=== PATIENT | male | born 1975 | race Caucasian/White ===

== ENCOUNTER → 2016-05-23 | Outpatient (CLI) | payer BC ==
--- NOTE | 2016-05-23 18:30 | PN ---
This patient was diagnosed having severe obstructive sleep apnea with an AHI 40. He is coming in for a compliancy check. He is doing much better and much more alert and awake during the day while being on treatment. His CPAP therapy for more than 4 hours has achieved 75%. He is utilizing a nose mask. However, he is looking for alternatives and he has showed interested ( ) nasal pillow. His AHI is up from 40 down to 1 while being on CPAP therapy and his leak factor is only 18 L/ minimal. He is averaging around 6.5 hours of CPAP use every night. No other complaints otherwise. He is quite alert and awake during the day. BP is 152/80. Pulse 78, respirations 16, weight is 203, temperature 97.9, saturation 98%. GENERAL APPEARANCE: Obese, calm, comfortable. HEENT: Negative for JVD. There is no goiter, neck mass. LUNGS: Clear to auscultation. HEART: Sounds are regular rate and rhythm. Normal S1, S2. ABDOMEN: Soft, nontender. No organomegaly. EXTREMITIES: No edema. No cyanosis or clubbing. IMPRESSION: 1. Severe symptomatic obstructive sleep apnea; apnea-hypopnea index of 14 currently undergoing successful CPAP therapy. 2. Obesity with a baseline of 31.8. I noted that the patient has gained around 9 pounds over the holidays. 3. Hypersomnia, improved with CPAP therapy. 4. Adequate compliancy with CPAP treatment. PLAN: 1. Encourage weight loss. 2. Continue CPAP therapy at the same level of pressure. 3. Implement good sleep hygiene measures. 4. Switch this patient to an AirFit P10 nasal pillow large size and appropriate mask fitting was done today. 5. See me back in a year's time; earlier if needed.
== END | disposition home or self-care (01) ==

== ENCOUNTER 2024-07-05 15:14 | Emergency (ER) | payer BC ==
[2024-07-05 15:21] VITALS: RESP 20
--- NOTE | 2024-07-05 15:39 | XR ---
EXAMINATION TYPE: XR chest 2V DATE OF EXAM: 07/05/2024 3:31 PM COMPARISON: Chest radiographs from 07/05/2024 CLINICAL INDICATION: Male, 48 years old with history of cough fever; TECHNIQUE: XR chest 2V Frontal and lateral views of the chest. FINDINGS: Lungs/Pleura: There is no evidence of pleural effusion, focal consolidation, or pneumothorax. Pulmonary vascularity: Unremarkable. Heart/mediastinum: Cardiomediastinal silhouette is unremarkable. Musculoskeletal: No acute osseous pathology. IMPRESSION: No acute cardiopulmonary disease/process. [facility], , 07/05/2024 3:37 PM
--- NOTE | 2024-07-05 15:59 | ED ---
URI HPI - General Chief Complaint: Upper Respiratory Infection Stated Complaint: Dizziness Time Seen by Provider: 07/05/24 15:30 Source: patient, RN notes reviewed Mode of arrival: ambulatory Limitations: no limitations - History of Present Illness Initial Comments: This is a 48-year-old male presenting with sick symptoms x 4 days. Patient endorses fever, cough, congestion, body aches, vomiting/diarrhea with associated dizziness. Denies chest pain, dyspnea, abdominal pain, nausea, hematemesis, hematochezia/melena. Endorses last use of TheraFlu/DayQuil at 1100 today. MD Complaint: fever Onset/Timin -: days(s) Improves With: OTC cold medicine Treatments Prior to Arrival: "cold medicine" - Related Data Previous Rx's Medication Instructions Recorded Ibuprofen [Motrin] 800 mg PO Q8HR PRN #30 tab 07/05/24 Ondansetron [Zofran] 4 mg PO Q8HR PRN #15 tab 07/05/24 Allergies Allergy/AdvReac Type Severity Reaction Status Date / Time No Known Allergies Allergy Verified 07/05/24 15:21 Review of Systems ROS Statement: Those systems with pertinent positive or pertinent negative responses have been documented in the HPI. ROS Other: All systems not noted in ROS Statement are negative. Past Medical History Past Medical History: No Reported History Past Surgical History: No Surgical Hx Reported Smoking Status: Never smoker General Exam Limitations: no limitations General appearance: alert, in no apparent distress Head exam: Present: atraumatic, normocephalic, normal inspection Eye exam: Present: normal appearance, PERRL, EOMI. Absent: scleral icterus, conjunctival injection, periorbital swelling ENT exam: Present: normal exam, normal oropharynx, mucous membranes moist, TM's normal bilaterally Neck exam: Present: normal inspection. Absent: tenderness, meningismus, lymphadenopathy Respiratory exam: Present: normal lung sounds bilaterally. Absent: respiratory distress, wheezes, rales, rhonchi, stridor Cardiovascular Exam: Present: regular rate, normal rhythm, normal heart sounds. Absent: systolic murmur, diastolic murmur, rubs, gallop, clicks GI/Abdominal exam: Present: soft, normal bowel sounds. Absent: distended, ten derness, guarding, rebound, rigid Extremities exam: Present: normal inspection, full ROM, normal capillary refill. Absent: tenderness, pedal edema, joint swelling, calf tenderness Back exam: Present: normal inspection Neurological exam: Present: alert, oriented X3, CN II-XII intact Psychiatric exam: Present: normal affect, normal mood Skin exam: Present: warm, dry, intact, normal color. Absent: rash Course Vital Signs 07/05/24 07/05/24 15:18 17:43 Temperature 101.2 F H 98.9 F Pulse Rate 113 H 100 Respiratory 20 20 Rate Blood Pressure 130/86 128/84 O2 Sat by Pulse 95 97 Oximetry Medical Decision Making - Medical Decision Making Was pt. sent in by a medical professional or institution (, PA, COMPONENT INSPECTOR, urgent care, hospital, or custodial...) When possible be specific @ -No Did you speak to anyone other than the patient for history (EMS, parent, family, police, friend...)? What history was obtained from this source @ -No Did you review nursing and triage notes (agree or disagree)? Why? @ -I reviewed and agree with nursing and triage notes Were old charts reviewed (outside hosp., previous admission, EMS record, old EKG, old radiological studies, urgent care reports/EKG's, custodial records)? Report findings @ -No old charts were reviewed Differential Diagnosis (chest pain, altered mental status, abdominal pain women, abdominal pain men, vaginal bleeding, weakness, fever, dyspnea, syncope, headache, dizziness, GI bleed, back pain, seizure, CVA, palpatations, mental health, musculoskeletal)? @ -Differential Fever: Pneumonia, viral URI, endocarditis, myocarditis, pericarditis, otitis, sinusitis, peritonsillar Abscess, retropharyngeal Abscess, epiglottitis, peritonitis, appendicitis, Safia cystitis, diverticulitis, hepatitis, colitis, UTI, PID, TOA, pyelonephritis, prostatitis, epididymitis, meningitis, encephalitis, pulmonary embolism, CVA, thyroid storm, pancreatitis, adrenal crisis, cavernous sinus thrombosis, this is not meant to be an all-inclusive list. EKG interpreted by me (3pts min.). @ -Not done X-rays interpreted by me (1pt min.). @ -CXR shows no acute cardiopulmonary process CT interpreted by me (1pt min.). @ -None done U/S interpreted by me (1pt. min.). @ -None done What testing was considered but not performed or refused? (CT, X-rays, U/S, labs)? Why? @ -None What meds were considered but not given or refused? Why? @ -None Did you discuss the management of the patient with other professionals (professionals i.e. , PA, COMPONENT INSPECTOR, lab, RT, psych nurse, social organization professor, shopping inspector, teacher, corporate development officer, pillowcase sewer)? Give summary @ -No Was smoking cessation discussed for >3mins.? @ -No Was critical care preformed (if so, how long)? @ -No Were there social determinants of health that impacted care today? How? (Homelessness, low income, unemployed, alcoholism, drug addiction, transportation, low edu. Level, literacy, decrease access to med. care, residential, rehab)? @ -No Was there de-escalation of care discussed even if they declined (Discuss DNR or withdrawal of care, Hospice)? DNR status @ -No What co-morbidities impacted this encounter? (DM, HTN, Smoking, COPD, CAD, Cancer, CVA, ARF, Chemo, Hep., AIDS, mental health diagnosis, sleep apnea, morbid obesity)? @ -None Was patient admitted / discharged? Hospital course, mention meds given and route, prescriptions, significant lab abnormalities, going to OR and other pertinent info. @ -Cepheid test positive for influenza A. CXR shows no acute cardiopulmonary process. Patient provided p.o. Tylenol, Motrin as well as IV normal saline. Discharged with Zofran starter pack. Motrin 800 and Zofran sent to patient's pharmacy. Advised increased rest and oral fluid intake. Discussed patient with Dr. Mojica. Undiagnosed new problem with uncertain prognosis? @ -No Drug Therapy requiring intensive monitoring for toxicity (Heparin, Nitro, Insulin, Cardizem)? @ -No Were any procedures done? @ -No Diagnosis/symptom? @ -Influenza A Acute, or Chronic, or Acute on Chronic? @ -Acute Uncomplicated (without systemic symptoms) or Complicated (systemic symptoms)? @ -Complicated Side effects of treatment? @ -No Exacerbation, Progression, or Severe Exacerbation? @ -No Poses a threat to life or bodily function? How? (Chest pain, [place], [place], pneumonia, PE, COPD, DKA, ARF, appy, cholecystitis, CVA, Diverticulitis, Homicidal, Suici prieto, threat to staff... and all critical care pts) @ -No - Lab Data Lab Results 07/05/24 Range/Units 15:22 Influenza Type A (PCR) Detected A (Not Detectd) Influenza Type B (PCR) Not Detected (Not Detectd) RSV (PCR) Not Detected (Not Detectd) SARS-CoV-2 (PCR) Not Detected (Not Detectd) Disposition Clinical Impression: Influenza Disposition: HOME SELF-CARE Condition: Good Instructions (If sedation given, give patient instructions): Influenza (ED) Prescriptions: Ibuprofen [Motrin] 800 mg PO Q8HR PRN #30 tab PRN Reason: Pain Ondansetron [Zofran] 4 mg PO Q8HR PRN #15 tab PRN Reason: Nausea Is patient prescribed a controlled substance at d/c from ED?: No Referrals: Sonia Agrawal DO [Primary Care Provider] - 1-2 days Time of Disposition: 16:47
[2024-07-05 16:11] LABS: Influenza A Detected (Not Detectd); Influenza B Not Detected (Not Detectd); RSV Not Detected (Not Detectd)
[2024-07-05] MEDS: IBUPROFEN 800 MG TAB PO STA (16:58)
[2024-07-05] MEDS: ACETAMINOPHEN TAB 500 MG TAB PO STA (16:59)
[2024-07-05] MEDS: ONDANSETRON 4 MG ODT STARTER PACK 2 TAB BTL PO STA ×2 (17:00)
[2024-07-05] MEDS: SODIUM CHLORIDE 0.9% 1,000 ML IV STA (17:05)
[2024-07-05 17:44] VITALS: BP 128/84; PULSE 100; TEMP 98.9
== END 2024-07-05 18:05 | disposition home or self-care (01) ==
LOC: EC 15:14
DX: J10.1 Influenza due to other identified influenza virus with other respiratory manifestations (principal)
CPT/HCPCS: 87636; 71046; 99284; 96360; S0119

== ENCOUNTER 2024-07-07 16:24 | Inpatient (IN) | payer BC ==
--- NOTE | 2024-07-07 16:45 | ED ---
URI HPI - General Chief Complaint: Upper Respiratory Infection Stated Complaint: SOB, disoriented Time Seen by Provider: 07/07/24 16:43 Source: patient, RN notes reviewed, old records reviewed Mode of arrival: wheelchair Limitations: no limitations - History of Present Illness Initial Comments: This is a 48-year-old male he is presenting today for evaluation regards to shortness of breath decreased activity level for 2 days maybe some diarrhea no nausea vomiting positive diagnosis of the flu 3 days ago no treatment Motrin Tylenol at home for fever. Patient states his activity level has been severely diminished with increasing shortness of breath today patient is restless cannot remain comfortable secondary to feel like he cannot catch his breath. No current chest pain no current abdominal pain, persistent fever MD Complaint: fever, cough, nasal congestion -: days(s) (3) Severity: moderate Severity scale (1-10): 7 Quality: sharp Consistency: constant Improves With: nothing Worsens With: activity, deep breaths Context: sick contacts (Positive influenza) Associated Symptoms: fever, chills, myalgias, nasal congestion, cough, shortness of breath Treatments Prior to Arrival: Acetaminophen, Ibuprofen - Related Data Previous Rx's Medication Instructions Recorded Ibuprofen [Motrin] 800 mg PO Q8HR PRN #30 tab 07/05/24 Ondansetron [Zofran] 4 mg PO Q8HR PRN #15 tab 07/05/24 Allergies Allergy/AdvReac Type Severity Reaction Status Date / Time No Known Allergies Allergy Verified 07/05/24 15:21 Review of Systems ROS Statement: Those systems with pertinent positive or pertinent negative responses have been documented in the HPI. ROS Other: All systems not noted in ROS Statement are negative. Past Medical History Past Medical History: No Reported History Past Surgical History: No Surgical Hx Reported Smoking Status: Never smoker General Exam Limitations: no limitations General appearance: anxious Head exam: Present: atraumatic, normocephalic, normal inspection Eye exam: Present: normal appearance, PERRL, EOMI. Absent: scleral icterus, conjunctival injection, periorbital swelling ENT exam: Present: normal exam, mucous membranes moist Neck exam: Present: normal inspection. Absent: tenderness, meningismus, lymphadenopathy Respiratory exam: Present: normal lung sounds bilaterally. Absent: respiratory distress, wheezes, rales, rhonchi, stridor Cardiovascular Exam: Present: normal rhythm, tachycardia, normal heart sounds. Absent: systolic murmur, diastolic murmur, rubs, gallop, clicks GI/Abdominal exam: Present: soft, normal bowel sounds. Absent: distended, tenderness, guarding, rebound, rigid Extremities exam: Present: normal inspection, full ROM, normal capillary refill. Absent: tenderness, pedal edema, joint swelling, calf tenderness Back exam: Present: normal inspection Neurological exam: Present: alert, oriented X3, CN II-XII intact Psychiatric exam: Present: normal affect, normal mood Skin exam: Present: warm, dry, intact, normal color. Absent: rash Course Vital Signs 07/07/24 07/07/24 07/07/24 16:30 18:21 19:34 Temperature 102.9 F H 100.7 F H 99.2 F Pulse Rate 110 H 98 86 Respiratory 24 20 18 Rate Blood Pressure 126/88 123/68 121/7 O2 Sat by Pulse 95 94 L Oximetry 07/07/24 07/07/24 19:39 19:48 Temperature Pulse Rate 84 90 Respiratory Rate Blood Pressure O2 Sat by Pulse Oximetry - Reevaluation(s) Reevaluation #1: 07/07/24 17:43 Medical records reviewed Recent ER visit positive for influenza normal chest x-ray Reevaluation #2: 07/07/24 17:43 Patient symptoms unchanged after breathing treatment 07/07/24 22:25 Patient feels much improved heart rate is reviewed resolved to normal, resting comfortably, still short of breath with oxygen's in the high 80s Reevaluation #3: 07/07/24 22:25 Patient informed of results questions answered Reevaluation #4: Was pt. sent in by a medical professional or institution (, PA, CORE COMPOSER FEEDER, urgent care, hospital, or residential...) When possible be specific @ -no Did you speak to anyone other than the patient for history (EMS, parent, family, police, friend...)? What history was obtained from this source @ -no Did you review nursing and triage notes (agree or disagree)? Why? @ -agree Are old charts reviewed (outside hosp., previous admission, EMS record, old EKG, old radiological studies, urgent care reports/EKG's, residential records)? Report findings @ -yes Differential Diagnosis (chest pain, altered mental status, abdominal pain women, abdominal pain men, vaginal bleeding, weakness, fever, dyspnea, syncope, headache, dizziness, GI bleed, back pain, seizure, CVA, palpatations, mental health, musculoskeletal)? @ -prior EKG interpreted by me (3pts min.). @ -yes X-rays interpreted by me (1pt min.). @ -yes negative for acute disease CT interpreted by me (1pt min.). @ -no U/S interpreted by me (1pt. min.). @ -no What testing was considered but not performed or refused? (CT, X-rays, U/S, labs)? Why? @ -none What meds were considered but not given or refused? Why? @ -none Did you discuss the management of the patient with other professionals (professionals i.e. , PA, CORE COMPOSER FEEDER, lab, RT, psych nurse, community mental health social worker, hand potter, te acher, evp and chief operating officer, rehabilitation caseworker)? Give summary @ -no Was smoking cessation discussed for >3mins.? @ -no Was critical care preformed (if so, how long)? @ -no Were there social determinants of health that impacted care today? How? (Homelessness, low income, unemployed, alcoholism, drug addiction, transportation, low edu. Level, literacy, decrease access to med. care, group home, rehab)? @ -none Was there de-escalation of care discussed even if they declined (Discuss DNR or withdrawal of care, Hospice)? DNR status @ -no What co-morbidities impacted this encounter? (DM, HTN, Smoking, COPD, CAD, Cancer, CVA, ARF, Chemo, Hep., AIDS, mental health diagnosis, sleep apnea, morbid obesity)? @ -none Was patient admitted / discharged? Hospital course, mention meds given and route, prescriptions, significant lab abnormalities, going to OR and other pertinent info. @ - Undiagnosed new problem with uncertain prognosis? @ -no Drug Therapy requiring intensive monitoring for toxicity (Heparin, Nitro, Insulin, Cardizem)? @ -no Were any procedures done? @ -no Diagnosis/symptom? @ - Acute, or Chronic, or Acute on Chronic? @ -Acute Uncomplicated (without systemic symptoms) or Complicated (systemic symptoms)? @ -Complicated Side effects of treatment? @ -no Exacerbation, Progression, or Severe Exacerbation? @ -exacerbation Poses a threat to life or bodily function? How? (Chest pain, [place], [place], pneumonia, PE, COPD, DKA, ARF, appy, cholecystitis, CVA, Diverticulitis, Homicidal, Suicidal, threat to staff... and all critical care pts) @ -yes Reevaluation #5: Differential Dyspnea: Coronary syndrome, arrhythmia, tamponade, asthma, COPD, pulmonary embolism, pneumonia, pneumothorax, pulmonary effusion, anaphylaxis, diabetic ketoacidosis, flailed chest, pulmonary contusion, diaphragmatic rupture, anemia, neuromuscular, this is not meant to be an all-inclusive list. - Consultations Consultation #1: Spoke with [facility] who agrees to admit this patient Medical Decision Making - Medical Decision Making 48 male to the ER for evaluation patient presents today patient is here for evaluation regards to influenza with increasing shortness of breath. Patient is found to have multifocal pneumonia fever and hypoxia here in the ER, patient will be admitted for further evaluation and treatment - Lab Data Result diagrams: 07/07/24 16:44 07/07/24 17:39 Lab Results 07/07/24 07/07/24 07/07/24 Range/Units 16:44 17:04 17:39 WBC 3.6 L (3.8-10.6) k/uL RBC 5.33 (4.30-5.90) m/uL Hgb 17.0 (13.0-17.5) gm/dL Hct 49.5 (39.0-53.0) % MCV 92.9 (80.0-100.0) fL MCH 32.0 (25.0-35.0) pg MCHC 34.4 (31.0-37.0) g/dL RDW 12.5 (11.5-15.5) % Plt Count 138 L (150-450) k/uL MPV 8.0 Neutrophils % 82 % Lymphocytes % 13 % Monocytes % 3 % Eosinophils % 1 % Basophils % 0 % Neutrophils # 2.9 (1.3-7.7) k/uL Lymphocytes # 0.5 L (1.0-4.8) k/uL Monocytes # 0.1 (0-1.0) k/uL Eosinophils # 0.0 (0-0.7) k/uL Basophils # 0.0 (0-0.2) k/uL PT (10.0-12.5) sec INR (<1.2) APTT (22.0-30.0) sec D-Dimer (<0.60) mg/L FEU Sodium 131 L (137-145) mmol/L Potassium 3.6 (3.5-5.1) mmol/L Chloride 103 (98-107) mmol/L Carbon Dioxide 20 L (22-30) mmol/L Anion Gap 8 mmol/L BUN 17 (9-20) mg/dL Creatinine 0.94 (0.66-1.25) mg/dL Est GFR (CKD-EPI)AfAm >90 (>60 ml/min/1.73 sqM) Est GFR (CKD-EPI)NonAf >90 (>60 ml/min/1.73 sqM) Glucose 148 H (74-99) mg/dL POC Glucose (mg/dL) 149 H (70-110) mg/dL POC Glu Iv Therapy Nurse ID [facility] Plasma Lactic Acid Umesh (0.7-2.0) mmol/L Calcium 7.5 L (8.4-10.2) mg/dL Magnesium 1.8 (1.6-2.3) mg/dL Total Bilirubin 0.5 (0.2-1.3) mg/dL AST 37 (17-59) U/L ALT 35 (4-49) U/L Alkaline Phosphatase 28 L (38-126) U/L Troponin I (0.000-0.034) ng/mL NT-Pro-B Natriuret Pep <20 pg/mL Total Protein 5.9 L (6.3-8.2) g/dL Albumin 3.4 L (3.5-5.0) g/dL 07/07/24 07/07/24 07/07/24 Range/Units 17:39 17:39 18:11 WBC (3.8-10.6) k/uL RBC (4.30-5.90) m/uL Hgb (13.0-17.5) gm/dL Hct (39.0-53.0) % MCV (80.0-100.0) fL MCH (25.0-35.0) pg MCHC (31.0-37.0) g/dL RDW (11.5-15.5) % Plt Count (150-450) k/uL MPV Neutrophils % % Lymphocytes % % Monocytes % % Eosinophils % % Basophils % % Neutrophils # (1.3-7.7) k/uL Lymphocytes # (1.0-4.8) k/uL Monocytes # (0-1.0) k/uL Eosinophils # (0-0.7) k/uL Basophils # (0-0.2) k/uL PT 10.7 (10.0-12.5) sec INR 1.0 (<1.2) APTT 25.3 (22.0-30.0) sec D-Dimer 1.28 H (<0.60) mg/L FEU Sodium (137-145) mmol/L Potassium (3.5-5.1) mmol/L Chloride (98-107) mmol/L Carbon Dioxide (22-30) mmol/L Anion Gap mmol/L BUN (9-20) mg/dL Creatinine (0.66-1.25) mg/dL Est GFR (CKD-EPI)AfAm (>60 ml/min/1.73 sqM) Est GFR (CKD-EPI)NonAf (>60 ml/min/1.73 sqM) Glucose (74-99) mg/dL POC Glucose (mg/dL) (70-110) mg/dL POC Glu Iv Therapy Nurse ID Plasma Lactic Acid Umesh 1.4 (0.7-2.0) mmol/L Calcium (8.4-10.2) mg/dL Magnesium (1.6-2.3) mg/dL Total Bilirubin (0.2-1.3) mg/dL AST (17-59) U/L ALT (4-49) U/L Alkaline Phosphatase (38-126) U/L Troponin I <0.012 (0.000-0.034) ng/mL NT-Pro-B Natriuret Pep pg/mL Total Protein (6.3-8.2) g/dL Albumin (3.5-5.0) g/dL - EKG Data -: EKG Interpreted by Me (EKG is sinus tachycardia 110, PA 148 QRS 92 QTc 364) - Radiology Data Radiology results: report reviewed (Chest x-ray positive multifocal pneumonia CTA), image reviewed Critical Care Time Critical Care Time: Yes Total Critical Care Time: 31 Disposition Clinical Impression: Viral infection, Acute upper respiratory infection, Pneumonia, Multifocal pneumonia, Fever, Influenza A Disposition: ADMITTED IP TO THIS HOSP Condition: Serious Is patient prescribed a controlled substance at d/c from ED?: No Referrals: Sonia Agrawal DO [Primary Care Provider] - 1-2 days Time of Disposition: 22:20
[2024-07-07 17:06] LABS: Glucose,Whole Blood 149 mg/dL (70-110)
[2024-07-07] MEDS: IBUPROFEN 800 MG TAB PO STA (17:07)
[2024-07-07] MEDS: ACETAMINOPHEN TAB 500 MG TAB PO STA (17:08)
[2024-07-07] MEDS: DEXAMETHASONE SOD PHOSPHATE 10 MG/ML 1 ML VIAL IVP STA (17:11)
[2024-07-07] MEDS: KETOROLAC 15 MG/ML 1 ML VIAL IVP STA (17:11)
[2024-07-07] MEDS: SODIUM CHLORIDE 0.9% 1,000 ML IV STA ×3 (17:19→19:34)
[2024-07-07 17:29] LABS: Basophils % (A) 0 %; Eosinophils % (A) 1 %; HCT 49.5 % (39.0-53.0); Lymphocytes # (A) 0.5 k/uL (1.0-4.8); Lymphocytes % (A) 13 %; MCHC 34.4 g/dL (31.0-37.0); MCV 92.9 fL (80.0-100.0); Monocytes # (A) 0.1 k/uL (0-1.0); Monocytes % (A) 3 %; Neutrophils # (A) 2.9 k/uL (1.3-7.7); Neutrophils % (A) 82 %; Platelet Count 138 k/uL (150-450); RBC 5.33 m/uL (4.30-5.90); RDW 12.5 % (11.5-15.5); WBC 3.6 k/uL (3.8-10.6)
--- NOTE | 2024-07-07 17:53 | XR ---
EXAMINATION TYPE: XR chest 2V DATE OF EXAM: 07/07/2024 5:41 PM COMPARISON: Chest radiographs from 07/05/2024 TECHNIQUE: XR chest 2V Frontal and lateral views of the chest. CLINICAL INDICATION:Male, 48 years old with history of difficulty breathing; FINDINGS: Lungs/Pleura: No pleural effusion pneumothorax. Diffuse patchy airspace opacities. Heart/mediastinum: Cardiomediastinal silhouette is enlarged and stable. Musculoskeletal: No acute osseous pathology. IMPRESSION: Diffuse patchy airspace opacities. Correlate for pneumonia versus CHF exacerbation. [facility], , 07/07/2024 5:51 PM
[2024-07-07] MEDS: SODIUM CHLORIDE 0.9% 500 ML 500 ML IV STA (17:57)
[2024-07-07 18:20] LABS: ALT 35 U/L (4-49); AST 37 U/L (17-59); African American GFR (CKD) >90 (>60 ml/min/1.73 sqM); Albumin 3.4 g/dL (3.5-5.0); Alkaline Phosphatase 28 U/L (38-126); Anion Gap 8 mmol/L; Blood Urea Nitrogen 17 mg/dL (9-20); Calcium 7.5 mg/dL (8.4-10.2); Carbon Dioxide 20 mmol/L (22-30); Chloride 103 mmol/L (98-107); Glucose 148 mg/dL (74-99); Magnesium 1.8 mg/dL (1.6-2.3); Non-African American GFR(CKD) >90 (>60 ml/min/1.73 sqM); Potassium 3.6 mmol/L (3.5-5.1); Sodium 131 mmol/L (137-145); Total Bilirubin 0.5 mg/dL (0.2-1.3); Total Protein 5.9 g/dL (6.3-8.2)
[2024-07-07 18:28] LABS: NT-Pro-B-Type Natriuretic Pept <20 pg/mL
[2024-07-07 18:45] LABS: Partial Thromboplastin Time 25.3 sec (22.0-30.0); Prothrombin Time 10.7 sec (10.0-12.5)
[2024-07-07] MEDS: IPRATROPIUM-ALBUTEROL 3 ML NEB INHALATION STA ×2 (19:36→23:59)
[2024-07-07] MEDS ORDERED: PNEUMONIA PROTOCOL UTILIZED 1 EACH MISC PO PRN (22:20)
--- NOTE | 2024-07-07 22:45 | CT ---
EXAMINATION TYPE: CT angio chest CT DLP: 217.3 mGycm, Automated exposure control for dose reduction was used. DATE OF EXAM: 07/07/2024 9:08 PM COMPARISON: Chest radiograph from same day. . CLINICAL INDICATION:Male, 48 years old with history of pe; JEANNIE, positive dimer TECHNIQUE/CONTRAST: CTA scan of the thorax is performed with IV Contrast, patient injected with 100 mL of Isovue 370, MIP images are created and reviewed these are created on a separate workstation.. FINDINGS: Pulmonary Artery: There is no evidence for a central filling defect within the pulmonary vasculature to suggest acute pulmonary embolism. Limited evaluation of the segmental and subsegmental branches se condary to bolus timing. The pulmonary artery is of normal size. Lungs/Pleura: Multifocal bilateral patchy groundglass changes with central and peripheral distributio n most pronounced in the midlung zones. No pleural effusion or pneumothorax.. Airway: Large airways are patent. Heart: Heart is within normal limits for size. Vasculature: No evidence of aortic aneurysm. Mediastinum: Multistation mediastinal lymphadenopathy the largest seen in the right paratracheal spac e measuring 12 mm in short axis. There are additional prominent lymph nodes noted in the bilateral hi la. Musculoskeletal: No acute osseous abnormalities Soft Tissues/lymph nodes: Unremarkable. Lower neck: No significant findings. Upper Abdomen: Hepatic steatosis. Cholelithiasis. The spleen measures 13 cm which is at the upper [place] its of normal. IMPRESSION: 1. No evidence of central pulmonary embolism. Limited evaluation of the segmental and subsegmental br anches. Correlate with DVT study if clinical concern for venous thrombosis persists. 2. Multifocal bilateral groundglass pulmonary opacities concerning for acute infectious/inflammatory process. 3. Reactive mediastinal lymphadenopathy likely secondary to #2. 4. Hepatic steatosis. [facility], , 07/07/2024 10:43 PM
[2024-07-07] MEDS: AZITHROMYCIN 500 MG in SODIUM CHLORIDE 0.9% 250 ML IVPB STA (23:41)
[2024-07-08] MEDS: IPRATROPIUM-ALBUTEROL 3 ML NEB INHALATION STA
[2024-07-08] MEDS: ACETAMINOPHEN TAB 325 MG TAB PO PRN (05:17)
[2024-07-08] MEDS: IPRATROPIUM-ALBUTEROL 3 ML NEB INHALATION PRN (05:40)
--- NOTE | 2024-07-08 08:15 | XR ---
EXAMINATION TYPE: XR chest 1V portable DATE OF EXAM: 07/08/2024 5:21 AM COMPARISON: None. CLINICAL INDICATION: Male, 48 years old with history of pneumonia, TECHNIQUE: XR chest 1V portable view(s) obtained. FINDINGS: The heart size is normal. The pulmonary vasculature is prominent. Patchy infiltrate is present. Correlate for atypical pulmonary edema or atypical pneumonia. Continued follow-up is recommended IMPRESSION: 1. Patchy bilateral lung infiltrates. Correlate for atypical pulmonary edema and atypical pneumonia [facility], , 07/08/2024 8:12 AM
[2024-07-08] MEDS ORDERED: ACETAMINOPHEN TAB 500 MG TAB PO STA (09:51)
[2024-07-08] MEDS ORDERED: ONDANSETRON 4 MG/2 ML VIAL IVP PRN (09:55)
[2024-07-08] MEDS: OSELTAMIVIR 75 MG CAP PO SCH (10:32)
[2024-07-08 10:47] LABS: African American GFR (CKD) >90 (>60 ml/min/1.73 sqM); Anion Gap 11 mmol/L; Blood Urea Nitrogen 17 mg/dL (9-20); Calcium 8.2 mg/dL (8.4-10.2); Carbon Dioxide 24 mmol/L (22-30); Chloride 101 mmol/L (98-107); Glucose 117 mg/dL (74-99); Non-African American GFR(CKD) >90 (>60 ml/min/1.73 sqM); Potassium 3.9 mmol/L (3.5-5.1); Sodium 136 mmol/L (137-145)
[2024-07-08] MEDS: methylPREDNISolone SOD SUCCI 40 MG/ML 1 ML VIAL IV SCH (12:29)
[2024-07-08] MEDS: DOXYCYCLINE 50 MG CAP PO SCH (13:17)
--- NOTE | 2024-07-08 19:04 | P.HPIM ---
History of Present Illness H&P Date: 07/08/24 This is a pleasant 48-year-old male with medical history significant for sleep apnea never smoker denies any alcohol or illicit substance use. Patient comes in with worsening flulike symptoms. Patient was in the ER on July 05 with shortness of breath and cough diagnosed with influenza A he was sent home recommending to continue with alternating Tylenol Motrin and supportive care. Patient return to the ER with worsening shortness of breath fever chills and bronchospastic cough without sputum production. Patient had a chest x-ray which reveals diffuse patchy airspace opacities correlate for pneumonia versus CHF exacerbation. Elevated D-dimer CT angiography was completed which reveals no evidence for of central pulmonary embolism there is limited evaluation of the segmental and subsegmental branches. Correlate with DVT study if clinical concern for venous thrombosis. Multifocal bilateral groundglass pulmonary opacities concerning for acute infectious/inflammatory process. Reactive mediastinal lymphadenopathy likely secondary to #2. Hepatic steatosis. 0.6, creatinine of 128, level 1.1, BUN 17 creatinine 0.94 lactic acid 1.4 troponin levels negative. proBNP levels less than 20. Patient was admitted to the hospital under internal medicine and while in the ER patient received an updraft started on IV ceftriaxone and IV azithromycin. Patient also received a 1 L fluid bolus. REVIEW OF SYSTEMS: CONSTITUTIONAL: No fever, no malaise, no fatigue. HEENT: No recent visual problems or hearing problems. Denied any sore throat. CARDIOVASCULAR: No chest pain, orthopnea, PND, no palpitations, no syncope. PULMONARY: Reports shortness of breath, Reports cough, no hemoptysis. GASTROINTESTINAL: No diarrhea, no nausea, no vomiting, no abdominal pain. NEUROLOGICAL: No headaches, no weakness, no numbness. HEMATOLOGICAL: Denies any bleeding or petechiae. GENITOURINARY: Denies any burning micturition, frequency, or urgency. MUSCULOSKELETAL/RHEUMATOLOGICAL: Denies any joint pain, swelling, or any muscle pain. ENDOCRINE: Denies any polyuria or polydipsia. The rest of the 14-point review of systems is negative. PHYSICAL EXAMINATION: GENERAL: The patient is alert and oriented x3, not in any acute distress. Well developed, well nourished. HEENT: Pupils are round and equally reacting to light. EOMI. No scleral icterus. No conjunctival pallor. Normocephalic, atraumatic. No pharyngeal erythema. No thyromegaly. CARDIOVASCULAR: S1 and S2 present. No murmurs, rubs, or gallops. PULMONARY: Scattered ronchi ABDOMEN: Soft, nontender, nondistended, normoactive bowel sounds. No palpable organomegaly. MUSCULOSKELETAL: No joint swelling or deformity. EXTREMITIES: No cyanosis, clubbing, or pedal edema. NEUROLOGICAL: Gross neurological examination did not reveal any focal deficits. SKIN: No rashes. Assessment and plan Acute influenza A with sepsis Viral pneumonia Sleep apnea Obesity Hypovolemic hyponatremia elevated D-dimer CT angio IVP negative for pulmonary embolism GI prophylaxis Plan Continue oral doxycycline Continue IV Solu-Medrol 40 mg every 12 hours Continue updrafts Patient was started on oral Tamiflu twice daily for 5 days Repeat CBC BMP Continue supportive care Motrin Tylenol The impression and plan of care has been dictated by Calista Capellan, Nurse Practitioner as directed. Dr. Era MD I have performed a history and physical examination and medical decision making of this patient, discussed the same with the dictator, and agree with the dictators assessment and plan as written, documented as a scribe. Based on total visit time, I have performed more than 50% of this visit. Past Medical History Past Medical History: Sleep Apnea/CPAP/BIPAP History of Any Multi-Drug Resistant Organisms: None Reported Past Surgical History: No Surgical Hx Reported Smoking Status: Never smoker - Past Family History Mother Family Medical History: No Reported History Medications and Allergies Home Medications Medication Instructions Recorded Confirmed Type Ibuprofen [Motrin] 800 mg PO Q8HR PRN #30 tab 07/05/24 07/08/24 Rx Ondansetron [Zofran] 4 mg PO Q8HR PRN #15 tab 07/05/24 07/08/24 Rx Allergies Allergy/AdvReac Type Severity Reaction Status Date / Time No Known Allergies Allergy Verified 07/08/24 07:42 Physical Exam Vitals: Vital Signs Temp Pulse Pulse Resp BP BP Pulse Ox 07/08/24 18:12 101.9 F H 99 19 136/73 93 L 07/08/24 17:54 100.4 F H 98 19 128/95 93 L 07/08/24 15:10 89 23 07/08/24 12:18 99.8 F H 95 24 121/68 92 L 07/08/24 10:10 100 07/08/24 10:00 101.0 F H 102 H 21 127/98 96 07/08/24 09:58 96 07/08/24 08:02 100.0 F H 95 21 138/79 94 L 07/08/24 06:00 107 H 18 142/75 95 07/08/24 05:54 97 07/08/24 05:41 88 07/08/24 02:35 79 18 104/53 07/08/24 01:25 07/08/24 00:22 92 07/08/24 00:04 81 07/07/24 22:42 75 18 104/67 93 L 07/07/24 19:48 90 07/07/24 19:39 84 07/07/24 19:34 99.2 F 86 18 121/7 FiO2 07/08/24 18:12 07/08/24 17:54 07/08/24 15:10 07/08/24 12:18 07/08/24 10:10 07/08/24 10:00 07/08/24 09:58 07/08/24 08:02 07/08/24 06:00 07/08/24 05:54 07/08/24 05:41 07/08/24 02:35 07/08/24 01:25 21 07/08/24 00:22 07/08/24 00:04 07/07/24 22:42 07/07/24 19:48 07/07/24 19:39 07/07/24 19:34 Intake and Output 07/08/24 07/08/24 07/08/24 06:59 14:59 22:59 Other: Weight 99.79 kg Results CBC & Chem 7: 07/07/24 16:44 07/08/24 10:05 Labs: Abnormal Lab Results - Last 24 Hours (Table) 07/07/24 07/08/24 Range/Units 18:11 10:05 D-Dimer 1.28 H (<0.60) mg/L FEU Sodium 136 L (137-145) mmol/L Glucose 117 H (74-99) mg/dL Calcium 8.2 L (8.4-10.2) mg/dL Thrombosis Risk Factor Assmnt - Choose All That Apply Each Factor Represents 1 point: Obesity (BMI >25) Thrombosis Risk Factor Assessment Total Risk Factor Score: 1 Thrombosis Risk Factor Assessment Level: Low Risk Assessment and Plan Time with Patient: Less than 30
[2024-07-08] MEDS: guaiFENesin-Coden 100-10MG/5ML 10 ML CUP PO PRN (21:02)
[2024-07-08] MEDS ORDERED: AZITHROMYCIN 500 MG in SODIUM CHLORIDE 0.9% 250 ML IVPB SCH (22:00)
[2024-07-08 22:22] VITALS: RESP 16
[2024-07-09] MEDS: IBUPROFEN 400 MG TAB PO PRN (02:15)
[2024-07-09 09:11] LABS: Calcium 8.2 mg/dL (8.7-10.3); Carbon Dioxide 19.8 mmol/L (21.6-31.8); Chloride 102 mmol/L (96-109); Glucose 188 mg/dL (70-110); Sodium 136 mmol/L (135-145)
[2024-07-09] MEDS: DOXYCYCLINE 100 MG TABLET PO SCH (09:52)
[2024-07-09 15:31] VITALS: BP 115/69; PULSE 84; TEMP 98.8
--- NOTE | 2024-07-10 08:54 | CDI ---
Documentation Clarification Form Date: 07/10/2024 From: Radha Bustamante Admit Date: 07/07/2024 10:20:00 PM Patient Name: Rafael Lentz Visit Number: [id number] Discharge Date: 07/09/2024 04:30:00 PM ATTENTION: The Clinical Documentation Specialists (CDI) and [facility] Coding Staff appreciate your assistance in clarifying documentation. Please respond to the clarification below the line at the bottom and electronically sign. The CDI & [facility] Coding staff will review the response and follow-up if needed. Please note: Queries are made part of the Legal Health Record. If you have any questions, please contact the author of this message via ITS. Doctor/Provider: Karen Girard Acute influenza A with sepsis is documented in the H&P which may lack sufficient clinical evidence/support in the medical record. Additional clarification is requested. History/Risk Factors: sleep apnea, obesity, hyponatremia, hypovolemic Clinical Indicators: Patient was in the ER on July 05 with shortness of breathandcoughdiagnosed withinfluenzaA he was sent home recommending to continue with alternating Tylenol Motrin and supportive care. Patient return to the ER with worseningshortness of breathfeverchillsand bronchospasticcoughwithout sputum production. WC 3.6, Neutrophils 2.0, Plasma lactic acid 1.4, Procalcitonin 0.44 Preliminary Blood Culture: Staphylococcus epidermidis Treatment: CPAP, IV Solu-Medrol, updrafts, Tamiflu, CBC, BMP, Azithromycin IV, Ceftriaxone Sodium IV Please clarify if sepsis is a valid diagnosis? [ x ] No, Sepsis is ruled out [ ] Yes, Sepsis is present as evidence by (additional clinical support): [ ] Other (please specify diagnosis) [ ] Unable to determine MTDD
--- NOTE | 2024-07-11 07:02 | P.DS ---
Providers Date of admission: 07/07/24 22:20 Attending physician: Trini Seals Primary care physician: Sonia Agrawal Hospital Course: Final Diagnosis Acute influenza A with sepsis Viral pneumonia Staphylococcus epidermidis bacteremia contaminant species Sleep apnea Obesity Hypovolemic hyponatremia Elevated D-dimer CT angio negative for pulmonary embolism Discharge Disposition Stable for discharge home patient will complete a course of oral Tamiflu for 4 more days for the acute influenza A infection. Patient to continue with prednisone taper. Patient has also been discharged on a Symbicort inhaler as well as albuterol as needed patient will also complete oral doxycycline for 5 additional days for an underlying atypical pneumonia patient to follow-up with his PCP Dr. Sonia Herron in 1 to 2 days. Hospital Course This is a pleasant 48-year-old male with medical history significant for sleep apnea never smoker denies any alcohol or illicit substance use. Patient comes in with worsening flulike symptoms. Patient was in the ER on July 05 with shortness of breath and cough diagnosed with influenza A he was sent home recommending to continue with alternating Tylenol Motrin and supportive care. Patient return to the ER with worsening shortness of breath fever chills and bronchospastic cough without sputum production. Patient had a chest x-ray which reveals diffuse patchy airspace opacities correlate for pneumonia versus CHF exacerbation. Elevated D-dimer CT angiography was completed which reveals no evidence for of central pulmonary embolism there is limited evaluation of the segmental and subsegmental branches. Correlate with DVT study if clinical concern for venous thrombosis. Multifocal bilateral groundglass pulmonary opacities concerning for acute infectious/inflammatory process. Reactive mediastinal lymphadenopathy likely secondary to #2. Hepatic steatosis. 0.6, creatinine of 128, level 1.1, BUN 17 creatinine 0.94 lactic acid 1.4 troponin levels negative. proBNP levels less than 20. Patient was admitted to the hospital under internal medicine and while in the ER patient received an updraft started on IV ceftriaxone and IV azithromycin. Patient also received a 1 L fluid bolus. He did have a blood culture come back positive for Staphylococcus epidermidis which is a contaminant species and no further interventions required for this. Clinically patient improved and will be discharged on a course of oral doxycycline and oral steroids as well as to complete the course of oral Tamiflu. Patient is currently on room air with oxygen saturations greater than 93%. Please see medication reconciliation for a list of current medications. Thank you for allowing us to participate in the care of this patient. The impression and plan of care has been dictated by Calista Capellan, Nurse Practitioner as directed. Dr. Era MD I have performed a history and physical examination and medical decision making of this patient, discussed the same with the dictator, and agree with the dictators assessment and plan as written, documented as a scribe. Based on total visit time, I have performed more than 50% of this visit. Patient Condition at Discharge: Fair Plan - Discharge Summary Discharge Rx Participant: No New Discharge Prescriptions: New Budesonide/Formoterol Fumarate [Symbicort 80-4.5 Mcg Inhaler] 1 puff INHAL ATION BID #10.2 gm Oseltamivir [Tamiflu] 75 mg PO Q12HR 4 Days #8 cap Albuterol Inhaler [Ventolin Hfa Inhaler] 1 puff INHALATION QID PRN #8 gm PRN Reason: Shortness Of Breath Or Wheezing Pantoprazole [Protonix] 40 mg PO DAILY #14 tab Benzonatate [Tessalon Perles] 100 mg PO TID PRN 7 Days #21 capsule PRN Reason: Cough Doxycycline 100 mg PO BID 5 Days #10 tab predniSONE 0 mg PO DIRECTED 7 Days #23 tab Continue Ondansetron [Zofran] 4 mg PO Q8HR PRN #15 tab PRN Reason: Nausea Ibuprofen [Motrin] 800 mg PO Q8HR PRN #30 tab PRN Reason: Pain Discharge Medication List Ibuprofen [Motrin] 800 mg PO Q8HR PRN #30 tab 07/05/24 [Rx] Ondansetron [Zofran] 4 mg PO Q8HR PRN #15 tab 07/05/24 [Rx] Albuterol Inhaler [Ventolin Hfa Inhaler] 1 puff INHALATION QID PRN #8 gm 07/09/24 [Rx] Benzonatate [Tessalon Perles] 100 mg PO TID PRN 7 Days #21 capsule 07/09/24 [Rx] Budesonide/Formoterol Fumarate [Symbicort 80-4.5 Mcg Inhaler] 1 puff INHALATION BID #10.2 gm 07/09/24 [Rx] Doxycycline 100 mg PO BID 5 Days #10 tab 07/09/24 [Rx] Oseltamivir [Tamiflu] 75 mg PO Q12HR 4 Days #8 cap 07/09/24 [Rx] Pantoprazole [Protonix] 40 mg PO DAILY #14 tab 07/09/24 [Rx] predniSONE 0 mg PO DIRECTED 7 Days #23 tab 07/09/24 [Rx] Follow up Appointment(s)/Referral(s): Sonia Agrawal, [Primary Care Provider] - 1-2 days (Office not answering Please call to schedule appointment) Ambulatory/Diagnostic Orders: Basic Metabolic Panel [LAB.AMB] Time Frame: 4 Days, Location: None Selected Complete Blood Count w/diff [LAB.AMB] Location: None Selected Patient Instructions/Handouts: Influenza (DC) Activity/Diet/Wound Care/Special Instructions: Complete course of doxycycline and tamiflu Continue supportive care with motrin Teszaida Perles as needed for cough Continue prednisone taper Use symbicort inhaler twice daily for 2 weeks Albuterol inhaler every 4 to 6 hours for shortness of breath or wheezing Protonix given to prevent stomach upset while on antibiotics and steroids Repeat blood work 3 to 4 days Follow up in the office with Dr. Sonia Agrawal in 1 to 2 days. Discharge Disposition: HOME SELF-CARE
== END 2024-07-09 16:30 | disposition home or self-care (01) | DRG 194 ==
LOC: EC 16:24 → 4SSUR 22:20
PROVIDERS: ADMIT Hospitalist; ATTEND Hospitalist
PROC: 5A09357 Assistance with Respiratory Ventilation, Less than 24 Consecutive Hours, Continuous Positive Airway Pressure (ICD-10-PCS; principal; 2024-07-08)
DX: J10.08 Influenza due to other identified influenza virus with other specified pneumonia (principal); E87.1 Hypo-osmolality and hyponatremia; K76.0 Fatty (change of) liver, not elsewhere classified; E66.9 Obesity, unspecified; J12.9 Viral pneumonia, unspecified; Z68.37 Body mass index [BMI] 37.0-37.9, adult; E86.1 Hypovolemia; G47.30 Sleep apnea, unspecified
CPT/HCPCS: 36415; 71045; 71046; 71275; 80048; 80053; 83605; 83735; 83880; 84145; 84484; 85025; 85379; 85610; 85730; 87040; 87077; 87186; 87449; 93005; 94640; 94660; 96361; 96365; 96366; 96367; 96375; 99291

== ENCOUNTER → 2024-08-19 | Outpatient (CLI) | payer BC ==
[2024-08-19 15:56] VITALS: BP 148/98; PULSE 93; RESP 18; TEMP 97.6
--- NOTE | 2024-08-19 16:20 | P.SLEEP ---
History of Present Illness H&P Date: 08/19/24 48-year-old patient which came after many years of interruption. The patient was diagnosed having obstructive sleep apnea back in 2016 and the patient has severe SOTERO with an AHI of 40. Over the years, the patient has been very compliant to CPAP therapy. Over the past 1 year, the patient was not able to get his supplies and for that reason the compliancy on the use of CPAP has dropped. Since then, the patient has become more symptomatic. Nevertheless, he has a functioning machine. The current machine is set at a pressure of 14 cm of water. I checked the compliance data on his machine and over the past 365 days, the patient has used the machine 38 days and he has achieved more than 4 hours 7 out of 38 days. Has been averaging around 6.9 hours of CPAP on a days the machine was utilized. The AHi is down to 2.2. The patient has gained weight and over the past 8 years, the patient has gained approximately 15 pounds. Now that he is off treatment, he is snoring and his sleep is fragmented. Current Simms score 4. No new onset comorbidities. No atrial fibrillation. No stroke. No congestion or heart failure. No other complaints otherwise. Review of Systems Constitutional: Reports daytime sleepiness, Reports fatigue, Reports weakness, Reports weight gain Eyes: denies as per HPI, denies blurred vision, denies bulging eye, denies decreased vision, denies diplopia, denies discharge, denies dry eye, denies ir ritation, denies itching, denies pain, denies photophobia, denies loss of peripheral vision, denies loss of vision, denies tunnel vision/blind spots Ears: deny: decreased hearing, ear discharge, earache, tinnitus Ears, nose, mouth and throat: Reports as per HPI Breasts: absent: as per HPI, gynecomastia Cardiovascular: Reports as per HPI Respiratory: Reports sleep apnea, Reports snoring Gastrointestinal: Reports as per HPI Genitourinary: Reports as per HPI Musculoskeletal: Reports as per HPI Musculoskeletal: absent: ankle pain, ankle stiffness, ankle swelling, as per HP I, elbow pain, elbow stiffness, elbow swelling, foot pain, foot stiffness, foot swelling, hand pain, hand stiffness, hand swelling, hip pain, hip stiffness, hip swelling, knee pain, knee stiffness, knee swelling, shoulder pain, shoulder stiffness, shoulder swelling, wrist pain, wrist stiffness, wrist swelling Integumentary: Reports as per HPI Neurological: Reports as per HPI Psychiatric: Reports as per HPI, Reports change in sleep habits, Reports hypersomnia, Reports sleep disturbances Endocrine: Reports as per HPI, Reports fatigue Hematologic/Lymphatic: Reports as per HPI Allergic/Immunologic: Reports as per HPI Past Medical History Past Medical History: No Reported History, Sleep Apnea/CPAP/BIPAP History of Any Multi-Drug Resistant Organisms: None Reported Past Surgical History: No Surgical Hx Reported Past Psychological History: No Psychological Hx Reported Smoking Status: Never smoker Past Alcohol Use History: Rare Past Drug Use History: None Reported - Past Family History Mother Family Medical History: No Reported History Medications and Allergies Home Medications Medication Instructions Recorded Confirmed Type Ibuprofen [Motrin] 800 mg PO Q8HR PRN #30 tab 07/05/24 07/08/24 Rx Ondansetron [Zofran] 4 mg PO Q8HR PRN #15 tab 07/05/24 07/08/24 Rx Albuterol Inhaler [Ventolin Hfa 1 puff INHALATION QID PRN #8 gm 07/09/24 Rx Inhaler] Benzonatate [Tessalon Perles] 100 mg PO TID PRN 7 Days #21 07/09/24 Rx capsule Budesonide/Formoterol Fumarate 1 puff INHALATION BID #10.2 gm 07/09/24 Rx [Symbicort 80-4.5 Mcg Inhaler] Doxycycline 100 mg PO BID 5 Days #10 tab 07/09/24 Rx Oseltamivir [Tamiflu] 75 mg PO Q12HR 4 Days #8 cap 07/09/24 Rx Pantoprazole [Protonix] 40 mg PO DAILY #14 tab 07/09/24 Rx predniSONE 0 mg PO DIRECTED 7 Days #23 tab 07/09/24 Rx Allergies Allergy/AdvReac Type Severity Reaction Status Date / Time No Known Allergies Allergy Verified 07/08/24 07:42 Physical Exam Vitals: Vital Signs Temp Pulse Resp BP Pulse Ox 08/19/24 15:55 97.6 F 93 18 148/98 98 Intake and Output 08/19/24 08/19/24 08/19/24 06:59 14:59 22:59 Other: Weight 100.924 kg The patient appeared well nourished and normally developed. Vital signs as documented. The body mass index is 36.5 and the patient has a Mallampati class IV with crowding of the posterior pharynx. Head exam is unremarkable. No scleral icterus or corneal arcus noted. Neck is without jugular venous distension, thyromegaly, or carotid bruits. Carotid upstrokes are brisk bilaterally. Lungs are clear to auscultation and percussion. Cardiac exam reveals the PMI to be normally sized and situated. Rhythm is regular. First and second heart sounds normal. No murmurs, rubs or gallops. Abdominal exam reveals normal bowel sounds, no masses, no organomegaly and no aortic enlargement. Extremities are nonedematous and both femoral and pedal pulses are normal. Examination of the skin revealed no evidence of significant rashes, suspicious appearing nevi or other concerning lesions. Neurologically, the patient is awake and alert and the patient does not have any focal neurological deficit. Cranial nerves are essentially intact. Assessment and Plan Plan: Severe symptomatic obstructive sleep apnea with an AHI of 40. The patient is symptomatic as the patient has quit using his CPAP due to lack of supplies. Obesity with a BMI of 36.5 with a total of 20 pounds weight gain over the past years Hypersomnia with an Simms score of 4 Plan I checked the patient CPAP unit. The patient has a functioning ResMed 10. The patient utilizes AirFit P10 medium size nasal pillows. I offered them a AirFit P30 I nasal pillow medium size. The mask was tried and the patient was quite comfortable with this new mask. The appropriate refills on the supplies was given and the patient is interested in switching his mask to an AirFit P 30I. No need for a sleep study. No need to make any further adjustments on his CPAP pressure. Will keep CPAP therapy at a pressure of 14 cm of water Encourage weight loss Maintain good sleep hygiene measures See me back in a years time in follow-up in the office. Time with Patient: Greater than 30 Sleep Note - Sleep Data ESS Total: 4 - Sleep Note Sleep Note: Temperature: 97.6 F Pulse Rate: 93 Respiratory Rate: 18 Blood Pressure: 148/98 SpO2: 98 Height: 5 ft 5.5 in Weight: 100.924 kg BMI: Neck Circumference: 19
== END ==
LOC: 3 N SLEEP 14:56
PROVIDERS: ATTEND Internal Medicine Critical Care Medicine
DX: G47.33 Obstructive sleep apnea (adult) (pediatric) (principal); E66.01 Morbid (severe) obesity due to excess calories; G47.10 Hypersomnia, unspecified; Z68.36 Body mass index [BMI] 36.0-36.9, adult
CPT/HCPCS: 99211